=== PATIENT | male | born 1955 | race Two or more races ===

== ENCOUNTER 2020-08-25 11:05 | Emergency (ER) | payer MEDICAID, MEDICARE ==
[~2020-08-25] VITALS: Ht 167.6 cm; Wt 79.8 kg
[2020-08-25 11:39] LABS: Basophils # (auto) 0 10 ^3/uL (0-0.2); Basophils % (auto) 0.4 % (0.0-2.0); Eosinophils # (auto) 0.1 10 ^3/uL (0-0.8); Eosinophils % (auto) 0.7 % (0.0-7.0); Hematocrit 50.1 % (41.0-53.0); Lymphocytes # (auto) 2.2 10 ^3/uL (0.4-5.4); Lymphocytes % (auto) 27.1 % (10.0-50.0); Mean Corpuscular Volume 91.2 fL (80.0-100.0); Monocytes # (auto) 0.7 10 ^3/uL (0-1.3); Monocytes % (auto) 8.8 % (0.0-12.0); Neutrophils # (auto) 5.2 10 ^3/uL (1.6-8.6); Nucleated Red Blood Cells % 0.3 %; Platelet Count (auto) 239 10^3/uL (140-450); Red Cell Distribution Width 13.8 % (11.8-14.3); White Blood Cell 8.3 10^3/uL (4.4-10.8)
[2020-08-25 12:06] LABS: Potassium 3.5 mmol/L (3.5-5.1)
[2020-08-25 12:11] LABS: Albumin 4.1 g/dL (3.4-5.0); BUN/Creatinine Ratio 14.4; Bilirubin, Total 0.4 mg/dL (0.2-1.0); Calcium 8.7 mg/dL (8.5-10.1)
[2020-08-25] MEDS ORDERED: ONDANSETRON HCL 4 MG/2 ML VIAL IV ONE (12:30)
[2020-08-25] MEDS ORDERED: SODIUM CHLORIDE 0.9% 1,000 ML IVB ONE (12:30)
[2020-08-25 14:02] LABS: INR 0.97 (0.9-1.15); Partial Thromboplastin Time 24.9 sec (23.0-31.2)
[2020-08-25] MEDS ORDERED: HYDROcodone-ACET 5/325MG TAB PO ONE (14:30)
[2020-08-25] MEDS ORDERED: DIPHENOXYLATE W/ATROPINE 2.5 MG TAB PO ONE (15:45)
[2020-08-25 16:30] VITALS: BP 112/70
[2020-08-25 16:35] LABS: Urine Bacteria NONE SEEN /hpf (None Seen); Urine Blood Negative /uL (Negative); Urine Mucus FEW (None Seen); Urine WBC 2 /hpf (0 - 3)
== END 2020-08-25 18:12 | disposition home or self-care (01) ==
LOC: ER 11:05
DX: K52.9 Noninfective gastroenteritis and colitis, unspecified (principal); F17.210 Nicotine dependence, cigarettes, uncomplicated; I10 Essential (primary) hypertension
CPT/HCPCS: 36415; 71045; 74176; 80053; 81001; 83735; 85025; 85610; 85730; 96361; 96374; 99285; J2405; J7030

== ENCOUNTER 2021-10-01 07:24 | Emergency (ER) | payer MEDICARE ==
[~2021-10-01] VITALS: Ht 167.6 cm; Wt 77.1 kg
[2021-10-01 07:48] VITALS: BP 166/104
[2021-10-01] MEDS ORDERED: METH750T22 PO (08:34)
[2021-10-01] MEDS ORDERED: IBUP800T27 PO (08:34)
[2021-10-01] MEDS ORDERED: HYDROcodone-ACET 5/325MG TAB PO ONE (08:45)
== END 2021-10-01 08:49 | disposition home or self-care (01) ==
LOC: ER 07:24
DX: S20.212A Contusion of left front wall of thorax, initial encounter (principal); I10 Essential (primary) hypertension; F17.210 Nicotine dependence, cigarettes, uncomplicated; Z79.1 Long term (current) use of non-steroidal anti-inflammatories (NSAID); Z79.899 Other long term (current) drug therapy; W22.8XXA Striking against or struck by other objects, initial encounter; Y93.89 Activity, other specified; Y92.89 Other specified places as the place of occurrence of the external cause; Y99.8 Other external cause status
CPT/HCPCS: 71101; 93005

== ENCOUNTER 2022-05-19 11:30 | Inpatient (IN) | payer MEDICARE ==
[~2022-05-19] VITALS: Ht 170.2 cm; Wt 86.5 kg
[~2022-05-19 11:30] MED LIST: IBUP800T27 PO; METH750T22 PO
[2022-05-19 12:17] LABS: Basophils # (auto) 0 10 ^3/uL (0-0.2); Basophils % (auto) 0.5 % (0.0-2.0); Eosinophils # (auto) 0.1 10 ^3/uL (0-0.8); Eosinophils % (auto) 1.7 % (0.0-7.0); Hemoglobin 14.9 g/dL (13.5-17.5); Lymphocytes # (auto) 2.7 10 ^3/uL (0.4-5.4); Lymphocytes % (auto) 36.6 % (10.0-50.0); Mean Corpuscular Hemoglobin 29.2 pg (28.0-32.0); Mean Corpuscular Volume 88.3 fL (80.0-100.0); Monocytes # (auto) 0.8 10 ^3/uL (0-1.3); Monocytes % (auto) 10.3 % (0.0-12.0); Neutrophils # (auto) 3.8 10 ^3/uL (1.6-8.6); Neutrophils % (auto) 50.9 % (37.0-80.0); Red Cell Distribution Width 13.8 % (11.8-14.3); White Blood Cell 7.5 10^3/uL (4.4-10.8)
[2022-05-19 13:04] LABS: Albumin 3.6 g/dL (3.4-5.0); Calcium 8.8 mg/dL (8.5-10.1); Potassium 4.4 mmol/L (3.5-5.1)
[2022-05-19 13:09] LABS: BUN/Creatinine Ratio 12.5; Bilirubin, Total 0.5 mg/dL (0.2-1.0)
[2022-05-19] MEDS ORDERED: HYDROcodone-ACET 5/325MG TAB PO ONE (13:30)
[2022-05-19] MEDS ORDERED: IBU600T PO (13:30)
[2022-05-19] MEDS ORDERED: MORPHINE SULFATE INJ 2 MG/ml SYRG IV ONE (15:00)
[2022-05-19] MEDS ORDERED: AZITHROMYCIN 500MG/ 250ML 250 ML IV ONE (15:00)
[2022-05-19] MEDS ORDERED: cefTRIAXone 1GM/50ML D5W 50 ML IV ONE (15:00)
[2022-05-19] MEDS ORDERED: ONDANSETRON HCL 4 MG/2 ML VIAL IV ONE (15:00)
[2022-05-19] MEDS ORDERED: ALBUTEROL SULF 2.5 MG/0.5ML(0.5%) NEB SOLN NEB PRN (16:15)
[2022-05-19] MEDS ORDERED: NITROGLYCERIN 0.4 MG SL TAB SL PRN (16:15)
[2022-05-19] MEDS ORDERED: IPRATROPIUM BROM 0.5 MG/2.5ML INH SOL NEB PRN (16:15)
[2022-05-19] MEDS ORDERED: MORPHINE SULFATE INJ 2 MG/ml SYRG IV PRN (16:15)
[2022-05-19 17:20] VITALS: BP 131/77
[2022-05-20 05:43] LABS: Basophils # (auto) 0.1 10 ^3/uL (0-0.2); Basophils % (auto) 0.7 % (0.0-2.0); Eosinophils # (auto) 0.3 10 ^3/uL (0-0.8); Eosinophils % (auto) 3.4 % (0.0-7.0); Lymphocytes # (auto) 2.8 10 ^3/uL (0.4-5.4); Lymphocytes % (auto) 33.6 % (10.0-50.0); Mean Corpuscular Hemoglobin 30.2 pg (28.0-32.0); Mean Corpuscular Hgb Conc. 34.3 g/dL (32.0-36.0); Mean Corpuscular Volume 88.1 fL (80.0-100.0); Monocytes # (auto) 0.8 10 ^3/uL (0-1.3); Monocytes % (auto) 10.2 % (0.0-12.0); Neutrophils # (auto) 4.3 10 ^3/uL (1.6-8.6); Neutrophils % (auto) 52.1 % (37.0-80.0); Nucleated Red Blood Cells % 0.2 %; Red Blood Cells 4.65 10^6/uL (4.5-5.90); Red Cell Distribution Width 13.5 % (11.8-14.3); White Blood Cell 8.3 10^3/uL (4.4-10.8)
[2022-05-20 06:05] LABS: Calcium 8.7 mg/dL (8.5-10.1)
[2022-05-20 06:07] LABS: BUN/Creatinine Ratio 19.2
[2022-05-20] MEDS: SODIUM CHLORIDE 0.9% 1,000 ML IV SCH ×2 (06:33→09:29)
[2022-05-20] MEDS: cefTRIAXone 1GM/50ML D5W 50 ML IV SCH (09:27)
[2022-05-20] MEDS: ENOXAPARIN SOD 40 MG/0.4 ML SYRINGE SC SCH (11:08)
[2022-05-20] MEDS: AZITHROMYCIN 500MG/ 250ML 250 ML IV SCH (11:08)
[2022-05-20] MEDS ORDERED: CHOLECALCIFEROL (VITD3) 2,000 UNIT CAP/TAB PO ONE (11:45)
[2022-05-20] MEDS ORDERED: ZINC SULFATE 220mg CAP or TAB PO ONE (11:45)
[2022-05-20 17:44] VITALS: BP 128/77
[2022-05-20] MEDS ORDERED: LOSA-69 PO (19:30)
[2022-05-20] MEDS: ASCORBIC ACID 500 MG TAB PO SCH (21:26)
[2022-05-20 22:00] VITALS: BP 122/75
[2022-05-20] MEDS ORDERED: CHLO1SOL PO (22:31)
[2022-05-20] MEDS ORDERED: [UNRECOGNIZED DRUG - CODE] MT (22:31)
[2022-05-21 01:55] LABS: Urine Bacteria NONE SEEN /hpf (None Seen); Urine Blood Negative /uL (Negative); Urine Specific Gravity 1.012 (1.001-1.035); Urine WBC 1 /hpf (0 - 3)
[2022-05-21 05:19] VITALS: BP 134/87
[2022-05-21] MEDS ORDERED: HYDROcodone-ACET 5/325MG TAB PO PRN (08:45)
[2022-05-21] MEDS ORDERED: ACETAMINOPHEN 325 MG TAB PO PRN (08:45)
[2022-05-21 09:00] VITALS: BP 116/75
[2022-05-21] MEDS: cefTRIAXone 1GM/50ML D5W 50 ML IV SCH (09:46)
[2022-05-21] MEDS: AZITHROMYCIN 500MG/ 250ML 250 ML IV SCH (09:47)
[2022-05-21] MEDS: ASCORBIC ACID 500 MG TAB PO SCH (09:49)
[2022-05-21] MEDS: ENOXAPARIN SOD 40 MG/0.4 ML SYRINGE SC SCH (09:50)
[2022-05-21] MEDS ORDERED: CHOLECALCIFEROL (VITD3) 2,000 UNIT CAP/TAB PO SCH (10:00)
[2022-05-21] MEDS ORDERED: ZINC SULFATE 220mg CAP or TAB PO SCH (10:00)
[2022-05-21] MEDS ORDERED: HYDR-4902 PO (10:15)
[2022-05-21] MEDS ORDERED: LEVO-28 PO (10:15)
[2022-05-21 12:46] VITALS: BP 117/72
[2022-05-21 13:00] VITALS: BP 117/72
== END 2022-05-21 15:00 | disposition home or self-care (01) | DRG 194 ==
LOC: ER 11:30 → OVERFLOW 16:22 → EAST 05-20 17:17
PROVIDERS: ADMIT Nurse Practitioner Family; ATTEND Nurse Practitioner Family
DX: J15.9 Unspecified bacterial pneumonia (principal); S22.42XA Multiple fractures of ribs, left side, initial encounter for closed fracture; I10 Essential (primary) hypertension; I71.43 Infrarenal abdominal aortic aneurysm, without rupture; Z86.79 Personal history of other diseases of the circulatory system; F17.210 Nicotine dependence, cigarettes, uncomplicated; Z20.822 Contact with and (suspected) exposure to COVID-19; Z86.16 Personal history of COVID-19; W18.39XA Other fall on same level, initial encounter; Y93.89 Activity, other specified; Y92.091 Bathroom in other non-institutional residence as the place of occurrence of the external cause; Y99.8 Other external cause status
CPT/HCPCS: 36415; 71045; 74176; 80048; 80053; 81001; 83605; 83690; 83880; 84484; 85025; 87040; 87426; 96361; 96365; 96366; 96367; 96375; 96376; G0378; J0696; J2405

== ENCOUNTER 2023-01-09 15:01 | Emergency (ER) | payer MEDICARE ==
[~2023-01-09] VITALS: Ht 167.6 cm; Wt 88.2 kg
[~2023-01-09 15:01] MED LIST changes: +CHLO1SOL PO; +HYDR-4902 PO; +IBU600T PO; +IBUP-1456 PO; -IBUP800T27 PO; +LEVO500T91 PO; +LOSA50TA46 PO; +METH-1182 PO; -METH750T22 PO; +[UNRECOGNIZED DRUG - CODE] MT
[2023-01-09 15:12] VITALS: BP 133/73; RESP 18; O2SAT 97
[2023-01-09 15:21] VITALS: PULSE 74
[2023-01-09] MEDS ORDERED: PANTOPRAZOLE 40 MG/10 ML VIAL INJ IV ONE (15:30)
[2023-01-09] MEDS ORDERED: SODIUM CHLORIDE 0.9% 500 ML IVB ONE (15:30)
[2023-01-09 15:43] LABS: Basophils # (auto) 0.1 10 ^3/uL (0-0.2); Basophils % (auto) 0.9 % (0.0-2.0); Eosinophils # (auto) 0.2 10 ^3/uL (0-0.8); Eosinophils % (auto) 1.8 % (0.0-7.0); Hematocrit 45.7 % (41.0-53.0); Hemoglobin 15.4 g/dL (13.5-17.5); Lymphocytes # (auto) 3.7 10 ^3/uL (0.4-5.4); Lymphocytes % (auto) 31.6 % (10.0-50.0); Mean Corpuscular Hemoglobin 29.3 pg (28.0-32.0); Mean Corpuscular Hgb Conc. 33.8 g/dL (32.0-36.0); Mean Corpuscular Volume 86.6 fL (80.0-100.0); Monocytes # (auto) 0.9 10 ^3/uL (0-1.3); Monocytes % (auto) 7.8 % (0.0-12.0); Neutrophils # (auto) 6.7 10 ^3/uL (1.6-8.6); Neutrophils % (auto) 57.9 % (37.0-80.0); Nucleated Red Blood Cells % 0.5 %; Red Blood Cells 5.27 10^6/uL (4.5-5.90); Red Cell Distribution Width 13.7 % (11.8-14.3); White Blood Cell 11.6 10^3/uL (4.4-10.8)
[2023-01-09 15:55] LABS: INR 1.02 (0.9-1.15); Partial Thromboplastin Time 28.7 SEC (24.5-34.5); Prothrombin Time 10.7 sec (9.3-11.8)
[2023-01-09 16:17] LABS: Alanine Aminotransferase 12 U/L (7-40); Albumin 4.7 g/dL (3.2-4.8); Alkaline Phosphatase 73 U/L (46-116); Anion Gap 5.3 (5-15); Aspartate Aminotransferase 14 U/L (13-40); BUN/Creatinine Ratio 9.5 (10.0-20.0); Bilirubin, Total 0.5 mg/dL (0.2-1.0); Blood Urea Nitrogen 7 mg/dL (9-23); Calcium 9.4 mg/dL (8.7-10.4); Carbon Dioxide 25.7 mmol/L (20-30); Chloride 107 mmol/L (98-107); Glucose 99 mg/dL (74-106); Lipase 28 U/L (12-53); Potassium 4.2 mmol/L (3.5-5.1); Sodium 138 mmol/L (136-145)
[2023-01-09 16:18] LABS: Total Protein 7.2 g/dL (5.7-8.2)
[2023-01-09] MEDS ORDERED: PANT40TA2 PO (19:06)
== END 2023-01-09 19:27 | disposition home or self-care (01) ==
LOC: ER 15:01
DX: K29.00 Acute gastritis without bleeding (principal); I10 Essential (primary) hypertension; F17.210 Nicotine dependence, cigarettes, uncomplicated; Z79.899 Other long term (current) drug therapy
CPT/HCPCS: 36415; 74176; 76705; 80053; 83690; 85025; 85610; 85730; 96361; 96374; 99285; C9113; J7040